=== PATIENT | female | born 1955 | race Asian ===

== ENCOUNTER 2021-05-16 15:24 | Outpatient (CLI) | payer OTHER | END 2021-05-16 19:32 | disposition home or self-care (01) | LOC: SCT 15:24 | PROVIDERS: ATTEND Orthopaedic Surgery Sports Medicine | DX: M25.552 Pain in left hip (principal); M47.814 Spondylosis without myelopathy or radiculopathy, thoracic region; M85.68 Other cyst of bone, other site; M51.37 Other intervertebral disc degeneration, lumbosacral region | CPT/HCPCS: 73700-TC; 76376 ==

== ENCOUNTER 2022-03-18 14:01 | Outpatient (CLI) | payer OTHER ==
[2022-03-18] MEDS ORDERED: DIATR MEGLU/DIATRIZ SOD 30 ML SOLUTION PO ONE (14:34)
[2022-03-18 14:58] LABS: CALCIUM 8.5 mg/dL (8.4-11.0); CREATININE 1.09 mg/dL (0.55-1.30)
[2022-03-18] MEDS ORDERED: iohexoL 350 mgI/mL, 100 ML INFUS..BTL IV ONE (15:59)
== END 2022-03-18 20:37 | disposition home or self-care (01) ==
LOC: SCT 14:01
DX: C56.1 Malignant neoplasm of right ovary (principal); N94.89 Other specified conditions associated with female genital organs and menstrual cycle; M47.819 Spondylosis without myelopathy or radiculopathy, site unspecified
CPT/HCPCS: 36415; 74177; 76376; 80048; Q9964; Q9967